=== PATIENT | male | born 1970 | race Caucasian/White ===

== ENCOUNTER 2017-01-20 10:34 | Emergency (ER) | payer BC ==
[2017-01-20 10:53] VITALS: BP 125/78
--- NOTE | 2017-01-20 11:26 | UC ---
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 - History of Current Complaint Chief Complaint: UCAbdominalPain Stated Complaint: ABD PAIN Time Seen by Provider: 01/20/17 11:20 Hx Obtained From: Patient Onset/Duration: Sudden Onset, Lasting Days - 2, Still Present Timing: Constant Severity Initially: Moderate Severity Currently: Moderate Location: Discrete At: LUQ Radiates: No Character: Unable to describe Aggravating Factor(s): Nothing Alleviating Factor(s): Nothing Associated Signs And Symptoms: Positive: Negative - Allergies/Home Medications Allergies/Adverse Reactions: Allergies Allergy/AdvReac Type Severity Reaction Status Date / Time No Known Allergies Allergy Verified 01/20/17 10:53 Home Medications: Home Medications Bupropion HCl [Bupropion Hydrochloride] 300 mg PO DAILY 01/20/17 [History Confirmed 01/20/17] Citalopram TAB* [Celexa TAB*] 10 mg PO DAILY 01/20/17 [History Confirmed ] Lactobacillus [Probiotic] 1 tab PO DAILY 01/20/17 [History Confirmed 01/20/17] Medical Marijuana 1 inh INH BEDTIME 01/20/17 [History] Sildenafil Citrate [Viagra] 50 mg PO DAILY PRN 01/20/17 [History Confirmed 01/20] Zolpidem TAB* [Ambien*] 1 - 2 tab PO BEDTIME PRN 01/20/17 [History Confirmed 12/27] PMH/Surg Hx/FS Hx/Imm Hx Previously Healthy: No - Chronic pain Cardiovascular History: Other Other Cardiovascular History: valve replacement Neurological History: CVA Psychological History: Anxiety - Surgical History Surgical History: Yes Surgery Procedure, Year, and Place: Spleenectomy. Valve Replacements, 2009 2012. Clots removed from both legs 2010 - Family History Known Family History: Positive: None - Social History Occupation: Disabled Lives: With Family Alcohol Use: Daily Alcohol Amount: 2 beers daily Substance Use Type: Marijuana Substance Use Comment - Amount & Last Used: Medical Marijuana Smoking Status (MU): Former Smoker Type: Cigarettes Have You Smoked in the Last Year: No - Immunization History Most Recent Influenza Vaccination: 2014 Most Recent Tetanus Shot: up to date Review of Systems Constitutional: Negative Skin: Negative Eyes: Negative ENT: Negative Respiratory: Negative Cardiovascular: Negative Gastrointestinal: Abdominal Pain Genitourinary: Negative Motor: Negative Neurovascular: Negative Musculoskeletal: Negative Neurological: Negative Psychological: Negative Is Patient Immunocompromised?: No All Other Systems Reviewed And Are Negative: Yes Physical Exam Triage Information Reviewed: Yes Appearance: Well-Appearing, No Pain Distress, Well-Nourished Vital Signs: Initial Vital Signs Temp 97.7 F 01/20/17 10:46 Pulse 76 01/20/17 10:46 Resp 18 01/20/17 10:46 BP 125/78 01/20/17 10:46 Pulse Ox 100 01/20/17 10:46 Vital Signs Reviewed: Yes Eye Exam: Normal Eyes: Positive: Conjunctiva Clear ENT Exam: Normal ENT: Positive: Normal ENT inspection, Hearing grossly normal. Negative: Nasal congestion, Trismus, Muffled voice, Hoarse voice Dental Exam: Normal Neck exam: Normal Neck: Positive: Supple, Nontender, No Lymphadenopathy Respiratory Exam: Normal Respiratory: Positive: Chest non-tender, No respiratory distress, No accessory muscle use Cardiovascular Exam: Normal Cardiovascular: Positive: RRR, Pulses Normal, Brisk Capillary Refill Abdominal Exam: Normal Abdomen Description: Positive: No Organomegaly, Soft, Other: - luq tenderness. Negative: CVA Tenderness (R), CVA Tenderness (L) Bowel Sounds: Positive: Present Musculoskeletal Exam: Normal Musculoskeletal: Positive: Strength Intact, ROM Intact, No Edema Neurological Exam: Other Neurological: Positive: Other: - baseline residual cva deficits Psychological Exam: Normal Skin Exam: Normal Abd Pain Male Course/Dx - Course Course Of Treatment: to [facility] [place] evaluation of abdomen pain - Differential Dx/Clinical Impression Provider Diagnoses: abd pain Discharge - Discharge Plan Condition: Fair Disposition: OTHER Discharge Disposition Comment: [facility] [place] ED by Private Car Patient Education Materials: Acute Abdominal Pain (ED) Referrals: Sal Ramos MD [Primary Care Provider] - Additional Instructions: Please go directly to the emergency department for complete evaluation of pain
== END 2017-01-20 11:42 ==
LOC: UCEAST 10:34
DX: R10.9 Unspecified abdominal pain (principal); Z95.2 Presence of prosthetic heart valve; Z86.73 Personal history of transient ischemic attack (TIA), and cerebral infarction without residual deficits; Z87.891 Personal history of nicotine dependence; F41.9 Anxiety disorder, unspecified; G89.29 Other chronic pain
CPT/HCPCS: 99211; G0463

== ENCOUNTER 2017-01-20 12:05 | Emergency (ER) | payer BC ==
[2017-01-20] MEDS ORDERED: NS 0.9% 1000 ML* 1,000 ML IV ONE (15:43)
[2017-01-20 16:23] LABS: Hematocrit 44 % (42-52); Hemoglobin 15.5 g/dl (14.0-18.0); Mean Corpuscular HGB Conc 35 g/dl (31-36); Mean Corpuscular Hemoglobin 34 pg (27-31); Mean Corpuscular Volume 96 fL (80-94); Mean Platelet Volume 9 um3 (7.4-10.4); Red Blood Count 4.55 10^6/ul (4.0-5.4); Red Cell Distribution Width 14 % (10.5-15); White Blood Count 8.6 10^3/ul (3.5-10.8)
[2017-01-20 16:27] LABS: Add Diff/Slide Review? Slide Review Added; Comments Flag Yes
[2017-01-20 16:46] LABS: BUN/Creatinine Ratio 10.9 (8-20); C Reactive Protein 4.02 mg/L (< 5.00); Calcium 9.1 mg/dL (8.6-10.3); EGFR African American 112.9 (>60); EGFR Non-African American 87.8 (>60); Globulin 2.8 g/dL (2-4); Magnesium 2.2 mg/dL (1.9-2.7); Potassium 3.9 mmol/L (3.5-5.0); Total Bilirubin 0.8 mg/dL (0.2-1.0); Total Protein 6.8 g/dL (6.4-8.9)
[2017-01-20] MEDS ORDERED: Iohexol 300* (CONTRAST) 10 ML SDV IV ONE (17:57)
--- NOTE | 2017-01-20 18:34 | RAD ---
CLINICAL HISTORY: Left upper quadrant pain COMPARISON: May 22, 2010 TECHNIQUE: Multiple contiguous axial CT scans were obtained of the abdomen and pelvis after the administration of intravenous contrast. Coronal and sagittal multiplanar reformations are submitted for review. FINDINGS: LUNG BASES: The lung bases are clear. LIVER: The liver is normal in shape, size, contour, and attenuation. BILE DUCTS: There is no intrahepatic or extrahepatic biliary dilatation. GALLBLADDER: Multiple gallstones are noted. There is no pericholecystic inflammatory change. PANCREAS: The pancreas is normal, without mass or ductal dilatation. SPLEEN: The spleen is not visualized. UPPER GI TRACT: Evaluation of the gastrointestinal tract is limited by incomplete gastric distention. The upper GI tract is unremarkable. SMALL BOWEL AND MESENTERY: The small bowel is normal in contour, course, and caliber. There is no obstruction or dilatation. COLON: The colon is normal in contour, course, caliber. There is no pericolonic inflammatory change. ADRENALS: Normal bilaterally. KIDNEYS: The kidneys are normal in shape, size, contour, and axis. There is no hydronephrosis or nephrolithiasis. BLADDER: The bladder is smooth in contour. PELVIC ORGANS: The prostate gland is normal. The seminal vesicles are symmetric. AORTA: The aorta is normal. IVC: Unremarkable LYMPH NODES: There is no lymphadenopathy by size criteria. ABDOMINAL WALL: There is no evidence for abdominal wall hernia. BONES AND SOFT TISSUES: Degenerative changes are noted OTHER: None IMPRESSION: 1. CHOLELITHIASIS. 2. STATUS POST SPLENECTOMY.
[2017-01-20 20:36] LABS: Urine Bacteria Absent (Absent); Urine Bilirubin Negative (Negative); Urine Glucose Negative (Negative); Urine Nitrite Negative (Negative)
--- NOTE | 2017-01-20 21:01 | ED ---
Nitin Baca Alfonso, scribed for Mae Marie MD on 01/20/17 at 1559 . 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 Pt states the pain is similar to when he had his splenic infarct, but he has had a splenectomy. The pain does not radiate. The patient rates the sharp pain 3/10 in severity. Symptoms aggravated by palpation. Symptoms alleviated by nothing. Patient reports left hemiparesis (s/p CVA). Patient denies N/V/D. He has an annual echocardiogram scheduled in 2 days with his [employer] in [place], Dr. Roth. His PCP is Dr. Ramos. Pt denies change in bowel habits or urinary sxs. No melena, hematochezia. Last BM today. He denies fever. - History of Current Complaint Chief Complaint: EDAbdPain Stated Complaint: ABD PAIN CT W/ CONTAST-CC TRANSFER Time Seen by Provider: 01/20/17 15:41 Hx Obtained From: Patient, Family/Corn Breeder - , Deedee, Medical Records - UC Onset/Duration: Lasting Days - 3, Still Present Timing: Constant Severity Initially: Moderate Severity Currently: Moderate Pain Intensity: 4 Pain Scale Used: 0-10 Numeric Location: Discrete At: LLQ, Other - left mid Radiates: No Character: Sharp Aggravating Factor(s): Other: - Palpation Alleviating Factor(s): Nothing Associated Signs And Symptoms: Positive: Other - chronic mild left hemiparesis ( s/p CVA 5 yrs ago). Patient denies N/V/D - Allergies/Home Medications Allergies/Adverse Reactions: Allergies Allergy/AdvReac Type Severity Reaction Status Date / Time No Known Allergies Allergy Verified 01/20/17 10:53 PMH/Surg Hx/FS Hx/Imm Hx Previously Healthy: No Cardiovascular History: Reports: Hx Atrial Fibrillation - maintains SR, not on anticoagulation , Hx Deep Vein Thrombosis - x5, Hx Hypertension, Hx Valvular Heart Disease - S/P AVR x 2 Denies: Hx Pacemaker/ICD Respiratory History: Denies: Hx Asthma Sensory History: Denies: Hx Hearing Aid Opthamlomology History: Denies: Hx Legally Blind EENT History: Denies: Hx Deafness Neurological History: Reports: Hx CVA - right side brain, Left hemiparesis Psychiatric History: Denies: Hx Panic Disorder - Surgical History Surgery Procedure, Year, and Place: Splenectomy. Valve Replacements, 2009 2012. Clots removed from both legs 2010 - Immunization History Date of Influenza Vaccine: 10/2016 Immunizations Up to Date: Yes Infectious Disease History: No Infectious Disease History: Denies: History Other Infectious Disease, Traveled Outside the [place] in Last 30 Days - Family History Known Family History: Positive: Diabetes, Other - melanoma - Social History Occupation: Disabled Lives: With Family Alcohol Use: Daily Alcohol Amount: 2 beers daily Hx Substance Use: Yes Substance Use Type: Reports: Marijuana - prescribed Substance Use Comment - Amount & Last Used: Medical Marijuana Hx Tobacco Use: Yes Smoking Status (MU): Former Smoker Type: Cigarettes Have You Smoked in the Last Year: No Review of Systems Negative: Fever Cardiovascular: Negative Respiratory: Negative Positive: Abdominal Pain. Negative: Vomiting, Diarrhea, Nausea Genitourinary: Negative Skin: Negative Neurological: Other - left hemiparesis (s/p CVA) Psychological: Normal All Other Systems Reviewed And Are Negative: Yes Physical Exam Triage Information Reviewed: Yes Vital Signs On Initial Exam: Initial Vitals Temp Pulse Resp BP Pulse Ox 97.1 F 66 18 134/86 100 01/20/17 12:16 01/20/17 12:16 01/20/17 12:16 01/20/17 12:16 01/20/17 12:16 Vital Signs Reviewed: Yes Appearance: Positive: Well-Appearing, Well-Nourished, Pain Distress Skin: Positive: Warm, Skin Color Reflects Adequate Perfusion, Other - Maculopapular erythematous rash at anterior chest. Keloid hypertrophic scar mid ant chest after AVR. Head/Face: Positive: Normal Head/Face Inspection Eyes: Positive: Conjunctiva Clear ENT: Positive: Normal ENT inspection Neck: Positive: Supple Respiratory/Lung Sounds: Positive: Clear to Auscultation, Breath Sounds Present , Other - no respiratory distress Cardiovascular: Positive: RRR, Pulses are Symmetrical in both Upper and Lower Extremities, Other - brisk capillary refill. Negative: Murmur Abdomen Description: Positive: No Organomegaly, Soft, Other: - LLQ tenderness. No rebound.. Negative: Nontender, Bruit, CVA Tenderness (R), CVA Tenderness (L) , Distended, Guarding, Hernia @, Hepatomegaly, McBurney's Point Tenderness, Peritoneal Signs, Pulsatile Mass, Splenomegaly - surgically absent Bowel Sounds: Positive: Present Male Genital Exam: Positive: normal genitalia, other - No testicular masses or tenderness. No scrotal swelling. No inguinal or femoral hernias. Musculoskeletal: Positive: Strength/ROM Intact, Other - scars bilat lower legs s /p clot removal Neurological: Positive: Sensory/Motor Intact, Alert, Oriented to Person Place, Time, Facial Symmetry, Speech Normal, Other - muscle tone normal Psychiatric: Positive: Normal - Carpenter Coma Scale Coma Scale Total: 15 Diagnostics - Vital Signs Vital Signs Temp Pulse Resp BP Pulse Ox 01/20/17 14:25 97.8 F 69 20 127/76 99 01/20/17 12:16 97.1 F 66 18 134/86 100 - Laboratory Lab Results: Lab Results 01/20/17 01/20/17 01/20/17 Range/Units 16:05 16:05 16:05 WBC (3.5-10.8) 10^3/ul RBC (4.0-5.4) 10^6/ul Hgb (14.0-18.0) g/dl Hct (42-52) % MCV (80-94) fL MCH (27-31) pg MCHC (31-36) g/dl RDW (10.5-15) % Plt Count (150-450) 10^3/ul MPV (7.4-10.4) um3 Neut % (Auto) (38-83) % Lymph % (Auto) (25-47) % Victoria % (Auto) (1-9) % Eos % (Auto) (0-6) % Baso % (Auto) (0-2) % Absolute Neuts (auto) (1.5-7.7) 10^3/ul Absolute Lymphs (auto) (1.0-4.8) 10^3/ul Absolute Monos (auto) (0-0.8) 10^3/ul Absolute Eos (auto) (0-0.6) 10^3/ul Absolute Basos (auto) (0-0.2) 10^3/ul Absolute Nucleated RBC 10^3/ul Nucleated RBC % INR (Anticoag Therapy) 0.92 (0.77-1.02) APTT 28.5 (26.0-36.3) seconds Sodium 135 (133-145) mmol/L Potassium 3.9 (3.5-5.0) mmol/L Chloride 99 L (101-111) mmol/L Carbon Dioxide 31 (22-32) mmol/L Anion Gap 5 (2-11) mmol/L BUN 10 (6-24) mg/dL Creatinine 0.92 (0.67-1.17) mg/dL Est GFR ( Amer) 112.9 (>60) Est GFR (Non-Af Amer) 87.8 (>60) BUN/Creatinine Ratio 10.9 (8-20) Glucose 99 (70-100) mg/dL Lactic Acid (0.5-2.0) mmol/L Calcium 9.1 (8.6-10.3) mg/dL Magnesium 2.2 (1.9-2.7) mg/dL Total Bilirubin 0.80 (0.2-1.0) mg/dL AST 20 (13-39) U/L ALT 16 (7-52) U/L Alkaline Phosphatase 49 (34-104) U/L Total Creatine Kinase 95 (10-223) U/L Troponin I 0.00 (<0.04) ng/mL C-Reactive Protein 4.02 (< 5.00) mg/L Total Protein 6.8 (6.4-8.9) g/dL Albumin 4.0 (3.2-5.2) g/dL Globulin 2.8 (2-4) g/dL Albumin/Globulin Ratio 1.4 (1-3) Amylase 27 L (29-103) U/L Lipase 10 L (11.0-82.0) U/L Urine Color Urine Appearance Urine pH (5-9) Ur Specific Dewy Rose (1.010-1.030) Urine Protein (Negative) Urine Ketones (Negative) Urine Blood (Negative) Urine Nitrate (Negative) Urine Bilirubin (Negative) Urine Urobilinogen (Negative) Ur Leukocyte Esterase (Negative) Urine WBC (Auto) (Absent) Urine RBC (Auto) (Absent) Urine Bacteria (Absent) Urine Glucose (Negative) Blood Type A Negative Antibody Screen Negative 01/20/17 01/20/17 01/20/17 Range/Units 16:05 16:05 20:12 WBC 8.6 (3.5-10.8) 10^3/ul RBC 4.55 (4.0-5.4) 10^6/ul Hgb 15.5 (14.0-18.0) g/dl Hct 44 (42-52) % MCV 96 H (80-94) fL MCH 34 H (27-31) pg MCHC 35 (31-36) g/dl RDW 14 (10.5-15) % Plt Count 402 (150-450) 10^3/ul MPV 9 (7.4-10.4) um3 Neut % (Auto) 51.3 (38-83) % Lymph % (Auto) 35.4 (25-47) % Victoria % (Auto) 10.7 H (1-9) % Eos % (Auto) 1.5 (0-6) % Baso % (Auto) 1.1 (0-2) % Absolute Neuts (auto) 4.4 (1.5-7.7) 10^3/ul Absolute Lymphs (auto) 3.0 (1.0-4.8) 10^3/ul Absolute Monos (auto) 0.9 H (0-0.8) 10^3/ul Absolute Eos (auto) 0.1 (0-0.6) 10^3/ul Absolute Basos (auto) 0.1 (0-0.2) 10^3/ul Absolute Nucleated RBC 0.01 10^3/ul Nucleated RBC % 0.2 INR (Anticoag Therapy) (0.77-1.02) APTT (26.0-36.3) seconds Sodium (133-145) mmol/L Potassium (3.5-5.0) mmol/L Chloride (101-111) mmol/L Carbon Dioxide (22-32) mmol/L Anion Gap (2-11) mmol/L BUN (6-24) mg/dL Creatinine (0.67-1.17) mg/dL Est GFR ( Amer) (>60) Est GFR (Non-Af Amer) (>60) BUN/Creatinine Ratio (8-20) Glucose (70-100) mg/dL Lactic Acid 0.7 (0.5-2.0) mmol/L Calcium (8.6-10.3) mg/dL Magnesium (1.9-2.7) mg/dL Total Bilirubin (0.2-1.0) mg/dL AST (13-39) U/L ALT (7-52) U/L Alkaline Phosphatase (34-104) U/L Total Creatine Kinase (10-223) U/L Troponin I (<0.04) ng/mL C-Reactive Protein (< 5.00) mg/L Total Protein (6.4-8.9) g/dL Albumin (3.2-5.2) g/dL Globulin (2-4) g/dL Albumin/Globulin Ratio (1-3) Amylase (29-103) U/L Lipase (11.0-82.0) U/L Urine Color Straw Urine Appearance Clear Urine pH 7.0 (5-9) Ur Specific Dewy Rose 1.034 H (1.010-1.030) Urine Protein Negative (Negative) Urine Ketones Negative (Negative) Urine Blood Negative (Negative) Urine Nitrate Negative (Negative) Urine Bilirubin Negative (Negative) Urine Urobilinogen Negative (Negative) Ur Leukocyte Esterase Trace H (Negative) Urine WBC (Auto) Trace(0-5/hpf) (Absent) Urine RBC (Auto) Trace(0-2/hpf) (Absent) Urine Bacteria Absent (Absent) Urine Glucose Negative (Negative) Blood Type Antibody Screen Result Diagrams: 01/20/17 16:05 01/20/17 16:05 Lab Statement: Any lab studies that have been ordered have been reviewed, and results considered in the medical decision making process. - CT A/P CT Interpretation Completed By: Radiologist - 1. CHOLELITHIASIS. 2. STATUS POST SPLENECTOMY. ED physician has reviewed this radiology report. - EKG 1555 Cardiac Rate: NL EKG Rhythm: Sinus Rhythm - 62 BPM EKG Interpretation: Normal AV IV CT, and QTc. -8 axis. NAC. Re-Evaluation - Re-Evaluation First Eval Re-Evaluation Time: 19:37 Change: Improved Comment: Reviewed labs and plan going forward with the patient. Will call Dr. Ramos. Pt understands and Deedee understands that while CT shows gallstones , pt does not present with cholecystitis, and pt does not have a surgical abdomen, or any sign of occult infection, or GI bleeding or clot anywhere. Pt's entire CT report was read aloud and discussed with pt and his and labs were reviewed in detail. Pt and agree to me discussing with PCP mary and plan to DC. Second Eval Re-Evaluation Time: 20:25 Change: Improved Comment: Reviewed plan and consult with Dr. Martínez, covering Dr. Ramos, with the patient. Third Eval Re-Evaluation Time: 21:00 Change: Improved - pain is controlled unless he pushes on it. Given urine results. Will f/u in am with Dr. Ramos and on 01/22/[address] Roth. Abdominal Pain Fem Course/Dx - Course Assessment/Plan: Patient declines pain medication throughout the ED course and first rated pain a 4, then a 1 at time of discharge. Patients medications reviewed this visit. In the ED course the patient had labs and abd CT with oral and IV contrast was given IV fluids. Patient will be discharged with follow up from PCP in the am. The patient is agreeable with this plan. - Diagnoses Provider Diagnoses: Cholelithiasis, LLQ abdominal pain - Provider Notifications Discussed Care Of Patient With: Sherron Martínez Time Discussed With Above Provider: 20:09 Instructed by Provider To: Other - Consulted Dr. Martínez (covering his PCP) at 2008 regarding the patients case and she agrees with the workup and plan, and will leave a note in the record for Dr. Ramos. Discharge - Discharge Plan Condition: Stable Disposition: HOME Patient Education Materials: Gallstones (ED), Acute Abdominal Pain (ED) Referrals: Sal Ramos MD [Primary Care Provider] - 1 Day Additional Instructions: We spoke with Dr. Martínez buddhist monk mayr. She is putting a note in for Dr. Ramos. You should call him first thing in the morning to be seen tomorrow. If you develop fever (temp at or above 100.5), vomiting, or double over in pain return immediately to the ER. We have given you a copy of your labs and CT report. You do have gallstones, but no evidence of cholecystitis. Your urine did not show signs of infection, but a urine culture has been sent. We will notify you if you need further treatment based on the urine culture. RETURN TO THE EMERGENCY DEPARTMENT FOR CHANGING OR WORSENING SYMPTOMS. The documentation as recorded by the Nitin he Alfonso accurately reflects the service I personally performed and the decisions made by me, Mae Marie MD.
[2017-01-20 21:31] VITALS: BP 126/70
== END 2017-01-20 21:31 | disposition home or self-care (01) ==
LOC: ED 12:05
DX: K80.20 Calculus of gallbladder without cholecystitis without obstruction (principal); R10.32 Left lower quadrant pain; Z86.11 Personal history of tuberculosis
CPT/HCPCS: 36415; 74177; 80053; 81003; 81015; 82150; 82550; 83605; 83690; 83735; 84484; 85025; 85610; 85730; 86140; 86850; 86900; 86901; 87086; 93005; 99283; Q9967

== ENCOUNTER 2017-05-12 09:10 | Emergency (ER) | payer BC ==
[2017-05-12 09:26] VITALS: BP 120/89
--- NOTE | 2017-05-12 09:59 | RAD ---
HISTORY: Left rib pain, trauma COMPARISONS: April 20, 2015 VIEWS: 6, Frontal view of the chest with frontal and oblique views of the left hemithorax FINDINGS: There is no displaced rib fracture or pneumothorax. The visualized lungs are clear. The patient is status post median sternotomy. IMPRESSION: NO DISPLACED RIB FRACTURE OR PNEUMOTHORAX
--- NOTE | 2017-05-12 10:17 | UC ---
Darin Baca Thomas, scribed for [facility] MD on 05/12/17 at 0935 . Truncal Trauma HPI - HPI Summary HPI Summary: In Room Note: The patient is a 46 year old male complaining of left-sided rib pain from a fall in the shower yesterday. The patient denies hematuria, cough, nausea, vomiting, and diarrhea. He is on doxycycline and Wellbutrin. He takes medical marijuana for pain and sleep. Note: Vital signs stable, afebrile. 46 year old male with complicated past medical history including aortic valve replacement, splenic infarct, previous left- sided thorax trauma, and CVA. Visit history otherwise noncontributory to current complaint. Nurses Note: Fell in shower yesterday. CVA 5 years ago with left sided weakness. - History Of Current Complaint Chief Complaint: UCTrauma Stated Complaint: RIB INJURY Time Seen by Provider: 05/12/17 09:15 Hx Obtained From: Patient Onset/Duration: Lasting Days - 1, Still Present Severity Currently: Moderate Pain Intensity: 4 Pain Scale Used: 0-10 Numeric Alleviating factor(s): Nothing Associated Signs And Symptoms: Negative: Hematuria, Fever - Allergies/Home Medications Allergies/Adverse Reactions: Allergies Allergy/AdvReac Type Severity Reaction Status Date / Time No Known Allergies Allergy Verified 05/12/17 09:26 PMH/Surg Hx/FS Hx/Imm Hx Previously Healthy: No - Aortic valve replacement, splenic infarct, left-sided thorax trauma, CVA - Surgical History Surgical History: Yes Surgery Procedure, Year, and Place: Splenectomy. Valve Replacements, 2009 2012. Clots removed from both legs 2010 - Family History Known Family History: Positive: Diabetes, Other - melanoma - Social History Occupation: Unemployed Alcohol Use: Daily Alcohol Amount: 2 beers daily Substance Use Type: Marijuana Substance Use Comment - Amount & Last Used: Medical Marijuana Smoking Status (MU): Former Smoker Type: Cigarettes Have You Smoked in the Last Year: No - Immunization History Most Recent Influenza Vaccination: 2014 Most Recent Tetanus Shot: up to date Review of Systems Genitourinary: Negative - hematuria Musculoskeletal: Other: - Left-sided rib pain Is Patient Immunocompromised?: No All Other Systems Reviewed And Are Negative: Yes Physical Exam - Summary Physical Exam Summary: Appearance: The patient is well-appearing, is in no pain distress, and is well- nourished. Eyes: Conjunctiva are clear. ENT: The hearing is grossly normal, the pharynx is normal, and the TMs are normal. There is no muffled or hoarse voice. Neck: The neck is supple and there is no lymphadenopathy. Respiratory: The chest is nontender. The lungs are clear, there are normal breath sounds, and there is no respiratory distress. Cardiovascular: Heart is regular rate and rhythm. There is no murmur. Abdomen: Abdomen soft, well-healed left abdominal splenectomy scar. No pain with palpation. Back: On the posterior axillary line, there is a green yellow bruising at approximately the level of T12. There is ecchymosis over the left lateral pelvis. There is no crepitus. Bowel sounds: present Musculoskeletal: Strength is intact. The patient moves all extremities. Neurological: The patient is alert. Psychological: The patient displays age appropriate behavior Skin: Negative for rashes. Triage Information Reviewed: Yes Vital Signs: Initial Vital Signs Temp 98.6 F 05/12/17 09:23 Pulse 78 05/12/17 09:23 Resp 14 05/12/17 09:23 BP 120/89 05/12/17 09:23 Pulse Ox 98 05/12/17 09:23 Vital Signs Reviewed: Yes Diagnostics - Radiology Ribs with chest x-ray Xray Interpretation: No Acute Changes - IMPRESSION: "No displaced rib fracture or pneumothorax". Dr. Gonzalez has reviewed this report. Radiology Interpretation Completed By: Radiologist Truncal Trauma Course/Dx - Course Course Of Treatment: The patient is a 46 year old male with left thorax discomfort after falling. He has complicated past medical history, including aortic valve replacement, splenectomy, CVA. He is on doxycycline prophylaxis. Ribs with chest x-ray shows no displaced rib fracture or pneumothorax. The differential is rib fracture versus contusion. Diagnosis is left thorax contusion. He will be discharged home and will follow up with his primary care physician as needed. Medications have been included in the original chart and reviewed. - Differential Dx/Diagnosis Differential Diagnosis/HQI/PQRI: Other - Rib fracture versus contusion Provider Diagnoses: Left thorax contusion Discharge - Sign-Out/Discharge Documenting (check all that apply): Discharge - patient will be discharged home - Discharge Plan Condition: Stable Disposition: HOME Patient Education Materials: Rib Fracture (ED) Referrals: Sal Ramos MD [Primary Care Provider] - Additional Instructions: PLEASE SEEK CARE AT THE EMERGENCY DEPARTMENT IF SYMPTOMS WORSEN OR IF NEW SYMPTOMS DEVELOP. FOLLOW UP WITH YOUR PRIMARY CARE PHYSICIAN, as needed. WE DISCUSSED: 1. YOU HAVE A BRUISE TO YOUR LEFT CHEST AND RIBS. 2. NO COLLAPSED LUNG OR BROKEN RIBS WERE SEEN ON X RAY. 3. WARM MOIST HEAT TO AREA IN MORNING TO LOOSEN UP; ICE TO AREA FOR ACUTE PAIN. LIMITED USE OF JONNIE WRAP MAY BE USEFUL. 4. RECHECK AT ANY TIME FOR INCREASED PAIN, TEMPERATURE, DIFFICULTY BREATHING. - Billing Disposition and Condition Condition: STABLE Disposition: HOME The documentation as recorded by the Darin he Thomas accurately reflects the service I personally performed and the decisions made by me, Deep Gonzalez MD.
== END 2017-05-12 10:22 | disposition home or self-care (01) ==
LOC: UCEAST 09:10
DX: S20.20XA Contusion of thorax, unspecified, initial encounter (principal); W18.2XXA Fall in (into) shower or empty bathtub, initial encounter; Y93.E1 Activity, personal bathing and showering; Y92.002 Bathroom of unspecified non-institutional (private) residence as the place of occurrence of the external cause; Z95.2 Presence of prosthetic heart valve; Z86.73 Personal history of transient ischemic attack (TIA), and cerebral infarction without residual deficits; Z86.718 Personal history of other venous thrombosis and embolism; Z87.891 Personal history of nicotine dependence
CPT/HCPCS: 99211; G0463

== ENCOUNTER 2018-09-15 15:04 | Emergency (ER) | payer BC, OTHER ==
[2018-09-15 15:19] VITALS: BP 114/63
--- NOTE | 2018-09-15 15:28 | UC ---
Throat Pain/Nasal Tin HPI - HPI Summary HPI Summary: 48 yo male presents with sore throat for the last 3 days. He tells me that 3 days ago he developed a sore throat. 2 days ago he thought it was improving. Today he woke up with increased pain and tried to eat lunch, but could not due to severity of discomfort. He denies fever, chills, sinus symptoms, cough, SOB, chest pain, rash. No difficulty swallowing or breathing. - History of Current Complaint Chief Complaint: UCRespiratory Stated Complaint: SORE THROAT, TROUBLE SWALLOWING Time Seen by Provider: 09/15/18 15:28 Hx Obtained From: Patient Onset/Duration: Gradual Onset Severity: Moderate Pain Intensity: 5 Pain Scale Used: 0-10 Numeric - Allergies/Home Medications Allergies/Adverse Reactions: Allergies Allergy/AdvReac Type Severity Reaction Status Date / Time No Known Allergies Allergy Verified 09/15/18 17:18 PMH/Surg Hx/FS Hx/Imm Hx - Additional Past Medical History Additional PMH: DVT Valve replacements - Surgical History Surgical History: Yes Surgery Procedure, Year, and Place: Splenectomy 2011. Valve Replacements, 2009 2012. Clots removed from both legs 2010 - Family History Known Family History: Positive: Diabetes, Other - melanoma - Social History Lives: With Family Alcohol Use: Daily Alcohol Amount: 2 beers daily Substance Use Type: Marijuana Substance Use Comment - Amount & Last Used: Medical Marijuana Smoking Status (MU): Former Smoker Type: Cigarettes Have You Smoked in the Last Year: No - Immunization History Most Recent Influenza Vaccination: 2014 Most Recent Tetanus Shot: up to date Review of Systems All Other Systems Reviewed And Are Negative: Yes Constitutional: Positive: Negative Skin: Positive: Negative Eyes: Positive: Negative ENT: Positive: Sore Throat Respiratory: Positive: Negative Cardiovascular: Positive: Negative Gastrointestinal: Positive: Negative Physical Exam - Summary Physical Exam Summary: GENERAL: NAD. WDWN. No pain distress. SKIN: No rashes, sores, lesions, or open wounds. HEENT: Head: AT/NC Eyes: EOM intact. Conjunctiva clear without inflammation or discharge. Ears: Hearing grossly normal. TMs intact, no bulging, erythema, or edema. Nose: Nasal mucosa pink and moist. NTTP maxillary and frontal sinus. Throat: Posterior oropharynx without exudates, erythema, or tonsillar enlargement. Uvula midline. NECK: Supple. Mild TTP at the area of thyroid cartilage with bogginess and slight fullness at the thyroid. No LAD. CHEST: CTAB. No r/r/w. No accessory muscle use. Breathing comfortably and in no distress. CV: RRR. Without m/r/g. Pulses intact. Cap refill <2seconds NEURO: Alert. PSYCH: Age appropriate behavior. Triage Information Reviewed: Yes Vital Signs: Initial Vital Signs Temp 98.0 F 09/15/18 15:16 Pulse 86 09/15/18 15:16 Resp 18 09/15/18 15:16 BP 114/63 09/15/18 15:16 Pulse Ox 98 09/15/18 15:16 Vital Signs Reviewed: Yes Throat Pain/Nasal Course/Dx - Course Course Of Treatment: XR: IMPRESSION: GROSSLY UNREMARKABLE NECK SOFT TISSUES BY RADIOGRAPH POC strep negative. He was given viscous lidocaine in the clinic which did not improve his sore throat. I am suspicious that the cause of his pain may be related to his thyroid or a soft tissue etiology. Given his medical history, I recommended that he be further evaluated in the ED. He was agreeable to this and will drive himself. - Differential Dx/Diagnosis Provider Diagnosis: Throat pain Discharge - Sign-Out/Discharge Documenting (check all that apply): Patient Departure All imaging exams completed and their final reports reviewed: No Studies - Discharge Plan Condition: Stable Disposition: HOME-RECOMMEND TO ED Referrals: Sal Ramos MD [Primary Care Provider] - Additional Instructions: Your throat pain today did not improve with viscous lidocaine. You had a neck XR that appeared normal. Your strep test was negative. Your symptoms are concerning for an underlying soft tissue infection or pathology. - Billing Disposition and Condition Condition: STABLE Disposition: Home-Recommend to ED
[2018-09-15] MEDS ORDERED: Lidocaine 2% VISCOUS* 15 ML UDC PO ONE (15:39)
== END 2018-09-15 16:29 | disposition home health service (06) ==
LOC: UCEAST 15:04
DX: J02.9 Acute pharyngitis, unspecified (principal); Z86.718 Personal history of other venous thrombosis and embolism; Z95.2 Presence of prosthetic heart valve; Z87.891 Personal history of nicotine dependence
CPT/HCPCS: 70360; 87651; 99212; G0463

== ENCOUNTER 2018-09-15 16:50 | Emergency (ER) | payer BC, OTHER ==
--- NOTE | 2018-09-15 17:28 | ED ---
Throat Pain/Nasal Congestion - HPI Summary HPI Summary: This pt is a 48 Y/O M presenting to [facility] with a CC of a sore throat that has been present since 09/13/18 and worsening this morning to a 3/10 in severity. The pt states that he has had no relief with gurgling salt water or cough drops. States that he has increased pain in the middle of his throat but noted that he has a swollen L side. Increase in pain when swallowing and eating. He denies any CP, abdominal pain, fevers, headaches, chills, rashes, and cough. He stated no alleviating factors. 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 - History of Current Complaint Chief Complaint: EDThroatPain Time Seen by Provider: 09/15/18 17:11 Hx Obtained From: Patient Onset/Duration: Sudden Onset - 09/13/18, Still Present, Worse Since - 09/15/18 Severity: Mild Cough: None - Allergies/Home Medications Allergies/Adverse Reactions: Allergies Allergy/AdvReac Type Severity Reaction Status Date / Time No Known Allergies Allergy Verified 09/15/18 17:18 PMH/Surg Hx/FS Hx/Imm Hx Previously Healthy: Yes Cardiovascular History: Reports: Hx Atrial Fibrillation - maintains SR, not on anticoagulation , Hx Deep Vein Thrombosis - x5, Hx Hypertension, Hx Valvular Heart Disease - S/P AVR x 2 , Other Cardiovascular Problems/Disorders - AVR x 2 , Denies: Hx Pacemaker/ICD Respiratory History: Denies: Hx Asthma Sensory History: Denies: Hx Legally Blind, Hx Deafness, Hx Hearing Aid Opthamlomology History: Denies: Hx Legally Blind Neurological History: Reports: Hx CVA - right side brain, Left hemiparesis Psychiatric History: Denies: Hx Panic Disorder - Surgical History Surgery Procedure, Year, and Place: Splenectomy 2011. Valve Replacements, 2009 2012. Clots removed from both legs 2010 - Immunization History Date of Influenza Vaccine: 10/2016 Infectious Disease History: No Infectious Disease History: Denies: History Other Infectious Disease, Traveled Outside the [place] in Last 30 Days - Family History Known Family History: Positive: None, Diabetes, Other - melanoma - Social History Occupation: Disabled Lives: With Family Alcohol Use: Daily Alcohol Amount: 2 beers daily Hx Substance Use: Yes Substance Use Type: Reports: Marijuana Substance Use Comment - Amount & Last Used: Medical Marijuana Hx Tobacco Use: Yes Smoking Status (MU): Former Smoker Type: Cigarettes Have You Smoked in the Last Year: No Review of Systems Negative: Fever, Chills Positive: Sore Throat Negative: Chest Pain Negative: Cough Negative: Abdominal Pain Negative: Rash Negative: Headache All Other Systems Reviewed And Are Negative: Yes Physical Exam - Summary Physical Exam Summary: Constitutional: Well-developed, Well-nourished, Alert. (-) Distressed Skin: Warm, Dry HENT: Normocephalic; Atraumatic, mild posterior oral pharynx erythema. No trismus, uvula midlibe Eyes: Conjunctiva normal Neck: Musculoskeletal ROM normal neck. (-) JVD, (-) Stridor, (-) Nuchal rigidity Cardio: Rhythm regular, rate normal, Heart sounds normal; Intact distal pulses; Radial pulses are 2+ and symmetric. (-) Murmur Pulmonary/Chest wall: Effort normal. (-) Respiratory distress, (-) Wheezes, (-) Rales Abd: Soft, (-) tenderness, (-) Distension, (-) Guarding, (-) Rebound Musculoskeletal: (-) Edema Lymph: (-) Cervical adenopathy Neuro: distal muscle weakness of the L forearm, L hand, and L foot Psych: Mood and affect Normal Triage Information Reviewed: Yes Vital Signs On Initial Exam: Initial Vitals Temp Pulse Resp BP Pulse Ox 98.1 F 75 18 132/74 96 09/15/18 17:06 09/15/18 17:06 09/15/18 17:06 09/15/18 17:06 09/15/18 17:06 Vital Signs Reviewed: Yes Diagnostics - Vital Signs Vital Signs Temp Pulse Resp BP Pulse Ox 09/15/18 17:06 98.1 F 75 18 132/74 96 - Laboratory Result Diagrams: 09/15/18 17:52 09/15/18 17:52 Lab Statement: Any lab studies that have been ordered have been reviewed, and results considered in the medical decision making process. Re-Evaluation - Re-Evaluation First Eval Change: Improved - CT scan about cause for pain. Patient to be given Toradol and 1 dose of steroids to help with sore throat. Patient will follow up with primary care doctor return for worsening symptoms EENT Course/Dx - Course Course Of Treatment: 48-year-old male presents from urgent care for concern for soft tissue infection of the neck. Neg strep. No obvious swelling on exam, mid uvula is midline, no tonsillar hypertrophy. Will check a CT scan as well as labs, we'll give Toradol for pain control and steroids - Diagnoses Provider Diagnoses: Pharyngitis Discharge - Sign-Out/Discharge Documenting (check all that apply): Patient Departure Patient Received Moderate/Deep Sedation with Procedure: No - Discharge Plan Condition: Stable Disposition: HOME Patient Education Materials: Pharyngitis (ED) Referrals: Sal Ramos MD [Primary Care Provider] - Additional Instructions: You were seen in the emergency department for a sore throat. Your CT scan did not show any evidence of fluid collections or abscesses. Take Motrin at home for pain as needed If any studies were not completed at the time of discharge you will be called with the relevant results. Please follow up with your primary care doctor in next 2-3 days and return to emergency department for worsening or concerning symptoms. - Billing Disposition and Condition Condition: STABLE Disposition: Home - Attestation Statements Document Initiated by Janeeibe: Yes Documenting Scribe: Luis Sutton Provider For Whom Janeeibe is Documenting (Include Credential): Chaz Mims MD Scribe Attestation: ILuis, scribed for Chaz Mims MD on 09/15/18 at 1929. Scribe Documentation Reviewed: Yes Provider Attestation: The documentation as recorded by the Luis he accurately reflects the service I personally performed and the decisions made by , Chaz Mims MD Status of Scribe Document: Viewed
[2018-09-15 17:59] LABS: Hematocrit 44 % (42-52); Hemoglobin 14.8 g/dL (14.0-18.0); Mean Corpuscular HGB Conc 34 g/dL (31-36); Mean Corpuscular Hemoglobin 33 pg (27-31); Mean Corpuscular Volume 98 fL (80-94); Mean Platelet Volume 8.5 fL (7.4-10.4); Platelet Count 383 10^3/uL (150-450); Red Blood Count 4.47 10^6 /uL (4.18-5.48); Red Cell Distribution Width 14 % (10-15); White Blood Count 14.2 10^3/uL (3.5-10.8)
[2018-09-15 18:16] LABS: Albumin 4.2 g/dL (3.2-5.2); Albumin/Globulin Ratio 1.6 (1-3); BUN/Creatinine Ratio 18.1 (8-20); Calcium 9.1 mg/dL (8.6-10.3); EGFR African American 102.8 (>60); EGFR Non-African American 84.9 (>60); Globulin 2.7 g/dL (2-4); Potassium 4.2 mmol/L (3.5-5.0); Total Bilirubin 0.5 mg/dL (0.2-1.0); Total Protein 6.9 g/dL (6.4-8.9)
[2018-09-15 18:21] LABS: ABS Basophils 0.1 10^3/ul (0-0.2); ABS Eosinophils 0.2 10^3/ul (0-0.6); ABS Lymphocytes 2.9 10^3/ul (1.0-4.8); Eosinophil % 1.4 %; Large Platelets Present; Lymphocyte % 20.7 %
[2018-09-15] MEDS ORDERED: Iohexol 300* (CONTRAST) 10 ML SDV IV ONE (18:26)
[2018-09-15] MEDS ORDERED: Ketorolac INJ* 30 MG/ML 1 ML VIAL IV ONE (19:23)
[2018-09-15] MEDS ORDERED: methylPREDNISolone 125 MG* 2 ML VIAL IV ONE (19:24)
[2018-09-15 19:48] VITALS: BP 111/84
== END 2018-09-15 19:48 | disposition home or self-care (01) ==
LOC: ED 16:50
DX: J02.9 Acute pharyngitis, unspecified (principal); I48.91 Unspecified atrial fibrillation; I10 Essential (primary) hypertension; Z87.891 Personal history of nicotine dependence
CPT/HCPCS: 36415; 70491; 80053; 85025; 96374; 96375; 99282; J1885; J2930; Q9967